=== PATIENT | female | born 1970 | race Caucasian/White ===

== ENCOUNTER 2018-05-20 17:49 | Emergency (ER) | payer OTHER ==
[~2018-05-20] VITALS: Ht 160 cm; Wt 46.7 kg
--- NOTE | 2018-05-20 18:50 | PHYS DOC ---
Past History Past Medical History: Hypertension, IBS, Sinusitis, TIA, Other Past Surgical History: Hysterectomy, Tonsillectomy, Other (sinus surgery) Additional Smoking Information: Pt states that she "vapes" Alcohol Use: Occasionally Drug Use: Other Social History Narrative: Pt states she used "Medical Marijuana" x 10 years in [place] Adult General Chief Complaint Chief Complaint: Palpitations HPI HPI Patient is a 48 year old female who presents with five days of flu-like symptoms. She reports nausea, vomiting, nasal congestion, sinus tenderness, productive cough with green sputum, fevers, chills, palpitations, and bilateral flank pain. Palpitations occur sporadically and are very brief only lasting seconds. During the episodes she feels her heart beat strongly and it feels erratic. Associated symptoms include shortness of breath and dizziness which resolves when palpitations stop. Of note she has a long standing history of episodic palpitations associated with headaches and elevated blood pressure. She does not take anything for her blood pressure as it is always borderline outside these episodes. She reports being previously worked up for "atherosclerotic arteries in her kidneys" but she is not certain of the results of those studies. Also history of nephrolithiasis in September 2017. She currently denies dysuria, urgency, hematuria. She has a history of IBS and underwent both upper and lower endoscopy that was not revealing of Crohn's or Ulcerative Colitis. 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 She says she has been screened several times for HIV. She reports intermittent diarrhea, melena, hematochezia. It is hard for her to keep weight on. Denies known sick contacts. Review of Systems Review of Systems Constitutional: Reports fever and chills [] Eyes: Denies change in visual acuity, redness, or eye pain [] HENT: Reports nasal congestion, sinus tenderness, sore throat [] Respiratory: Reports productive cough, green sputum [] GI: Reports nausea, vomiting, diarrhea [] : Denies dysuria or hematuria [] Musculoskeletal: Reports bilateral flank pain [] Integument: Denies rash or skin lesions [] Neurologic: Denies headache, focal weakness or sensory changes [] Complete systems were reviewed and found to be within normal limits, except as documented in this note. Allergies Allergies Allergies Coded Allergies Type Severity Reaction Last Updated Verified No Known Drug Allergies 05/20/18 No Physical Exam Physical Exam Constitutional: Well developed, thin, no acute distress, . [] HENT: Normocephalic, atraumatic, bilateral TMs normal, erythema of pharynx without exudate [] Eyes: PERRL, EOMI, conjunctiva normal, no discharge. [] Neck: submental tenderness, supraclavicular tenderness bilaterally, no LAD [] Cardiovascular: Heart rate regular rhythm, no murmur [] Lungs & Thorax: Bilateral breath sounds clear to auscultation [] Abdomen: Soft, no tenderness, no distention [] Skin: Warm, dry, no erythema, no rash. [] Back: Bilateral CVA tenderness left> right. [] Extremities: No tenderness, ROM intact, no edema. [] Neurologic: Alert and oriented X 3, normal motor function, normal sensory function, no focal deficits noted. [] Psychologic: Affect normal, judgement normal, mood normal. [] Current Patient Data Vital Signs Vital Signs Date Time Temp Pulse Resp B/P (MAP) Pulse Ox O2 Delivery O2 Flow Rate FiO2 05/20/18 17:49 98.0 91 20 98 Room Air EKG EKG 05/20/18 at 17:57:36 Normal sinus rhythm with baseline HR of 74 bpm QRS: 88 ms QT/QTc: 368/409 Radiology/Procedures Radiology/Procedures []PROCEDURE: CHEST PA & LATERAL PA and lateral chest. HISTORY: Congestion, cough, fever PA and lateral views were taken of the chest. Lungs are clear. Heart is normal in size without heart failure. There is no effusion. IMPRESSION: 1. No acute chest disease. Electronically signed by: Lamin Ley MD (05/20/2018 7:42 PM) [facility] DICTATED AND SIGNED BY: LAMIN LEY MD DATE: 05/20/181939 PROCEDURE: CT ABDOMEN PELVIS WO CONTRAST CT abdomen and pelvis without contrast. HISTORY: Flank pain, lower abdominal pain CT scan of the abdomen and pelvis was done without contrast. Lung bases are clear. There is no effusion. A liver lesion is not identified. There is no calcified gallstone. Spleen and adrenal glands are normal. There is no mass or hydronephrosis or calculus in either kidney. Pancreas appears normal. There is no adenopathy. Bowel pattern is normal. Patient's had a hysterectomy. Appendix is normal. There is no ascites. There is no bowel obstruction. IMPRESSION: 1. No renal or ureteral calculus or hydronephrosis noted. 2. Normal appendix. 3. No bowel obstruction or other acute finding in the abdomen or pelvis. PQRS Compliance Statement: One or more of the following individualized dose reduction techniques were utilized for this examination: 1. Automated exposure control 2. Adjustment of the mA and/or kV according to patient size 3. Use of iterative reconstruction technique Electronically signed by: Lamin Ley MD (05/20/2018 8:02 PM) [facility] Course & Med Decision Making Course & Med Decision Making Pertinent Labs and Imaging studies reviewed. (See chart for details) Patient presents with flu like symptoms, palpitations, and bilateral flank pain. She did not complain of palpitations while she was here, nor did her EKG reflect any cardiac abnormalities. While patient denied recreational drug use other then marijuana she screened positive for amphetamines, which could contribute to palpitations. No evidence of infection on UA or kidney stones noted on CT imaging. Thyroid function testing is currently in process. Potassium replaced. CXR without acute process. Patient stable for discharge with outpatient follow-up with PCP. Discussed findings and plan with patient, who acknowledges understanding and agreement. Dragon Disclaimer Dragon Disclaimer This electronic medical record was generated, in whole or in part, using a voice recognition dictation system. Departure Departure: Impression: Primary Impression: Palpitations Additional Impressions: Flank pain Upper respiratory infection Hypokalemia Disposition: 01 HOME, SELF-CARE Condition: STABLE Referrals: KELECHI LUGO MD Patient Instructions: Flank Pain, [id number], Hypokalemia-Brief, Palpitations , [id number], Potassium Content of Foods, Upper Respiratory Infection, Adult, [id number] Problem Qualifiers Additional Impressions: Upper respiratory infection URI type: unspecified URI Qualified Codes: J06.9 - Acute upper respiratory infection, unspecified SHARMILA OSBORNE DO May 20, 2018 18:50
[2018-05-20] MEDS ORDERED: FAMOTIDINE 20 MG/2 ML VIAL IVP ONE (19:00)
[2018-05-20] MEDS ORDERED: KETOROLAC 15 MG/ML VIAL. IV ONE (19:00)
[2018-05-20] MEDS ORDERED: IV NORMAL SALINE 1,000ML 1,000 ML IV ONE (19:00)
[2018-05-20 19:07] LABS: BASO % 1 % (0-3); EOS % 0 % (0-3); HEMATOCRIT 38.7 % (36.0-47.0); HEMOGLOBIN 13.3 g/dL (12.0-15.5); LYMPH # 1.6 x10^3/uL (1.0-4.8); LYMPH % 37 % (24-48); MEAN CORPUSCULAR HEMOGLOBIN 32 pg (25-35); MEAN CORPUSCULAR HGB CONC 34 g/dL (31-37); MEAN CORPUSCULAR VOLUME 92 fL (79-100); MONO # 0.5 x10^3/uL (0.0-1.1); MONO % 11 % (0-9); NEUT # 2.2 x10^3uL (1.8-7.7); NEUT % 51 % (31-73); PLATELET COUNT 189 x10^3/uL (140-400); RED CELL DISTRIBUTION WIDTH 14.2 % (11.5-14.5); WHITE BLOOD COUNT 4.3 x10^3/uL (4.0-11.0)
[2018-05-20 19:16] LABS: ALBUMIN 3.8 g/dL (3.4-5.0); ALBUMIN/GLOBULIN RATIO 1.1 (1.0-1.7); CALCIUM 9.3 mg/dL (8.5-10.1); CREATININE 0.6 mg/dL (0.6-1.0); GFR 107.6; POTASSIUM 3.2 mmol/L (3.5-5.1); TOTAL BILIRUBIN 0.5 mg/dL (0.2-1.0); TOTAL PROTEIN 7.4 g/dL (6.4-8.2)
[2018-05-20 19:46] LABS: BARBITURATES NEG (NEG); BENZODIAZEPINES NEG (NEG); CANNABINOIDS POS (NEG); COCAINE NEG (NEG); METHADONE NEG (NEG); OPIATES NEG (NEG); PHENCYCLIDINE NEG (NEG)
--- NOTE | 2018-05-20 19:46 | RAD ---
PA and lateral chest. HISTORY: Congestion, cough, fever PA and lateral views were taken of the chest. Lungs are clear. Heart is normal in size without heart failure. There is no effusion. IMPRESSION: 1. No acute chest disease. Electronically signed by: Lamin Figueroa MD (05/20/2018 7:42 PM) [facility]
[2018-05-20 19:47] LABS: AMPHETAMINE/METHAMPHETAMINE POS (NEG)
[2018-05-20 19:53] LABS: BACTERIA,URINE FEW /HPF (0-FEW); BILIRUBIN,URINE NEG (NEG); CLARITY,URINE HAZY; COLOR,URINE YELLOW; GLUCOSE,URINE NEG (NEG); HYALINE CASTS, URINE OCC /HPF; NITRITE,URINE NEG (NEG); RBC,URINE RARE /HPF (0-2); SQUAMOUS EPITHELIAL CELL,UR MANY /LPF; UROBILINOGEN,URINE 0.2 mg/dL (0.2 mg/dL)
[2018-05-20] MEDS ORDERED: POTASSIUM CHLORIDE 20 MEQ TABLET.ER. PO ONE (20:00)
--- NOTE | 2018-05-20 20:07 | RAD ---
CT abdomen and pelvis without contrast. HISTORY: Flank pain, lower abdominal pain CT scan of the abdomen and pelvis was done without contrast. Lung bases are clear. There is no effusion. A liver lesion is not identified. There is no calcified gallstone. Spleen and adrenal glands are normal. There is no mass or hydronephrosis or calculus in either kidney. Pancreas appears normal. There is no adenopathy. Bowel pattern is normal. Patient's had a hysterectomy. Appendix is normal. There is no ascites. There is no bowel obstruction. IMPRESSION: 1. No renal or ureteral calculus or hydronephrosis noted. 2. Normal appendix. 3. No bowel obstruction or other acute finding in the abdomen or pelvis. PQRS Compliance Statement: One or more of the following individualized dose reduction techniques were utilized for this examination: 1. Automated exposure control 2. Adjustment of the mA and/or kV according to patient size 3. Use of iterative reconstruction technique Electronically signed by: Lamin Figueroa MD (05/20/2018 8:02 PM) [facility]
[2018-05-20 21:00] VITALS: BP 124/72
[2018-05-20] MEDS ORDERED: DEXAMETHASONE 4 MG TABLET PO ONE (21:00)
--- NOTE | 2018-05-21 01:12 | EKG ---
[address] [address] Test Date: 2018-05-20 Test Time: 17:57:36 Pat Name: ANGELES FIELDS Department: Room: Gender: F Agency Appointments Supervisor: QUENTIN : 1970 Requested By: ABIGAIL CARMONA Order Number: [id number] Reading MD: Madi Aly MD Measurements Intervals [place] Rate: 74 P: 36 KS: 134 QRS: 35 QRSD: 88 T: 54 QT: 368 QTc: 409 Interpretive Statements SINUS RHYTHM POOR R WAVE PROGRESSION Electronically Signed On 05-27-2018 8:57:17 [employer] by Madi Aly MD
[2018-05-21 13:29] LABS: FREE T4 1.24 ng/dL (0.76-1.46); THYROID STIM HORMONE (TSH) 1.082 uIU/mL (0.358-3.740)
== END 2018-05-20 21:05 | disposition home or self-care (01) ==
LOC: ER 17:49
DX: J06.9 Acute upper respiratory infection, unspecified (principal); R00.2 Palpitations; E87.6 Hypokalemia; R42 Dizziness and giddiness; R10.30 Lower abdominal pain, unspecified; I10 Essential (primary) hypertension; K58.9 Irritable bowel syndrome, unspecified; Z86.73 Personal history of transient ischemic attack (TIA), and cerebral infarction without residual deficits
CPT/HCPCS: 36415; 71046; 74176; 80053; 80307; 81001; 81025; 83690; 84439; 84443; 84481; 84484; 85025; 93005; 96361; 96374; 96375; 99284; J1885; J3490; J8540; J7030